=== PATIENT | female | born 1995 | race Asian ===

== ENCOUNTER → 2024-01-08 | Outpatient (CLI) | payer OTHER | LOC: M RAD 12:16 | PROVIDERS: ATTEND Physician Assistant Medical | DX: R20.0 Anesthesia of skin (principal) ==

== ENCOUNTER 2024-01-22 20:46 | Emergency (ER) | payer OTHER ==
[~2024-01-22] VITALS: Ht 157.5 cm; Wt 85.7 kg
[2024-01-22] MEDS ORDERED: CYCL-707 (20:56)
[2024-01-22] MEDS: ACETAMINOPHEN 325 MG TAB PO ONE (21:14)
[2024-01-23 00:08] LABS: BASO # 0.1 10^3/uL (0.0-0.2); BASO % 0.4 % (0.0-1.0); BLOOD UREA NITROGEN 9 MG/DL (9-23); CALCIUM LEVEL 9.5 MG/DL (8.5-10.1); CARBON DIOXIDE LEVEL 24 MMOL/L (20-31); CHLORIDE LEVEL 102 MMOL/L (98-107); CREATININE FOR GFR 0.81 MG/DL (0.55-1.30); EOS # 0.2 10^3/uL (0.0-0.5); GLOMERULAR FILTRATION RATE > 60.0 (>60); GLUCOSE, FASTING 81 MG/DL (60-100); HEMOGLOBIN 13.4 g/dl (12.0-15.5); LYMPH # 3.5 10^3/uL (1.5-5.0); LYMPH % 18.7 % (24.0-44.0); MAGNESIUM LEVEL 2.1 MG/DL (1.8-2.4); MEAN CORPUSCULAR HEMOGLOBIN 30.2 pg (27.0-33.0); MEAN CORPUSCULAR HGB CONC 33.5 g/dl (32.0-36.5); MEAN CORPUSCULAR VOLUME 90.1 fl (80.0-96.0); MONO # 1.3 10^3/uL (0.0-0.8); MONO % 7.1 % (2.0-8.0); NEUTROPHILS # 13.2 10^3/uL (1.5-8.5); NEUTROPHILS % 70.6 % (36.0-66.0); PLATELET COUNT, AUTOMATED 399 10^3/uL (150-450); POTASSIUM SERUM 4.1 MMOL/L (3.5-5.1); RED BLOOD COUNT 4.44 10^6/uL (4.00-5.40); SODIUM LEVEL 136 MMOL/L (136-145); WHITE BLOOD COUNT 18.7 10^3/uL (4.0-10.0)
[2024-01-23 00:10] LABS: MONO SCRN NEGATIVE (NEGATIVE)
[2024-01-23] MEDS ORDERED: ISOVUE-370 76% 100ML VIAL As Ordered ONE (00:28)
[2024-01-23] MEDS ORDERED: DOXY-443 PO (01:57)
[2024-01-23] MEDS ORDERED: BENZ200C70 PO (01:57)
[2024-01-23] MEDS: DOXYCYCLINE HYCLATE 100MG TABLET PO ONE (02:10)
[2024-01-23 02:15] VITALS: BP 112/54; TEMP 97.9; O2SAT 99
== END 2024-01-23 02:17 | disposition home or self-care (01) ==
LOC: M ED 20:46
DX: J18.9 Pneumonia, unspecified organism (principal); R16.0 Hepatomegaly, not elsewhere classified; Z91.013 Allergy to seafood
CPT/HCPCS: 71046; 71260; 74177; 80048; 81001; 83735; 85025; 86308; 87086; 87486; 87581; 87633; 87798; 99284; Q9967

== ENCOUNTER → 2024-10-09 | Outpatient (REF) | payer OTHER ==
[~2024-10-09] MED LIST: BENZ200C70 PO; CYCL-707; DOXY-441 PO
== END ==
LOC: M LAB REF 08:25
PROVIDERS: ATTEND Otolaryngology
DX: L82.0 Inflamed seborrheic keratosis (principal)